=== PATIENT | female | born 1965 | race Caucasian/White ===

== ENCOUNTER 2021-04-12 13:16 | Emergency (ER) | payer OTHER ==
[~2021-04-12] VITALS: Ht 165.1 cm; Wt 77.1 kg
[~2021-04-12 13:16] MED LIST: CYCL10 PO; HYDACE5 PO; NAPR500 PO; PROACE100 PO; SERT25 PO; ZOLP5 PO
[2021-04-12] MEDS ORDERED: Robaxin750 MG PO (15:40)
[2021-04-12] MEDS ORDERED: IBUP800 PO (15:40)
== END 2021-04-12 15:52 | disposition home or self-care (01) ==
LOC: ER 13:16
DX: M54.2 Cervicalgia (principal); R51.9 Headache, unspecified; M25.512 Pain in left shoulder; Z79.899 Other long term (current) drug therapy; V49.50XA Passenger injured in collision with unspecified motor vehicles in traffic accident, initial encounter
CPT/HCPCS: 70450; 72125; 73030; 99284-25; A9270

== ENCOUNTER 2023-10-06 21:34 | Emergency (ER) | payer OTHER ==
[~2023-10-06] VITALS: Ht 167.6 cm; Wt 72.6 kg
[~2023-10-06 21:34] MED LIST changes: +IBUP800 PO; +Robaxin750 MG PO
[2023-10-06 21:51] VITALS: BP 162/93
== END 2023-10-07 00:23 | disposition home or self-care (01) ==
LOC: ER 21:34
DX: S09.90XA Unspecified injury of head, initial encounter (principal); S40.012A Contusion of left shoulder, initial encounter; W01.10XA Fall on same level from slipping, tripping and stumbling with subsequent striking against unspecified object, initial encounter
CPT/HCPCS: 70450; 73030